=== PATIENT | male | born 1985 | race Caucasian/White ===

== ENCOUNTER 2022-01-19 00:13 | Day surgery (SDC) | payer OTHER, SELFPAY ==
[2022-01-11 15:39] VITALS: BMI 29.1
--- NOTE | 2022-01-11 15:47 | PC.NURSE ---
Report to the Outpatient Waiting Room, entrance under the green pavilion located off [facility], at time 0830 on date 01/19/22. OR Time: 1030. - You and your visitor will be asked a series of questions to screen for COVID 19 for your protection. - Only one visitor is allowed at this time. - The patient visitor is requested to leave or wait in car when not with patient. - A mask is required within the hospital. Patients may have clear liquids (water, carbonated beverages, clear teas, apple juice) until 3 hours prior to surgery with a maximum of 20 ounces. - No food from midnight until time of surgery Take the following medications with a SIP of water the morning of surgery: NONE Medications to discontinue per physician: PROBIOTIC Date to take last dose: 01/15/22 Please no make-up, nail urdu, hairspray, perfume, deodorant, or body powder the day of surgery. No jewelry (including any body piercings) or valuables the day of surgery, leave them at home. Please take a shower or bath the night before, or the morning of, surgery with an antibacterial soap. Wear comfortable, loose fitting clothing. - Jewelry must be removed prior to entering the operating room. Rings and piercings that are not removed may be cut off. - The hospital will not accept responsibility for valuables. - Please leave all valuables, including medications, at home the day of surgery. If you are going home after surgery, a licensed cart driver must drive you home. - NO public transportation without another adult. - We recommend that an adult stay with you for 24 hours following discharge. - We also recommend that you do not drive, make important decision, drink alcoholic beverages, or take any drugs that were not prescribed by your health care provider for at least 24 hours after your discharge time. Follow any additional instructions given to you from your surgeon. If you or anyone in your household have experienced Covid symptoms in the past week, please notify your surgeon or the nurse liaison at the phone number below for possible testing. Telephone instructions given to PT - ANUM ESTEVEZ and asked if any additional questions and then verbalized understanding. Patient advised to call surgeon office or pre surgery nurse liaison [phone] if any additional questions.
--- NOTE | 2022-01-18 13:33 | WPDANESEPPF ---
Anes - Initial Pre Proc Eval Procedure: Operation Date: 01/19/22 10:30 Proposed Procedures p Bilateral Vasectomy, Possible Scrotal Exploration - Fabrizio Zavala MD Date/Time: 01/18/22 13:33 Surgeon: Fabrizio Zavala MD Pre Op Diagnosis: desires sterilization Patient Data Age: 36 Gender: M Height: 1.83 m Weight: 97.52 kg Allergies Allergy/AdvReac Type Severity Reaction Status Date / Time No Known Allergies Allergy Verified 01/11/22 15:38 Home Medications Medication Instructions Recorded Confirmed Type Lactobacillus acidophilus and 1 cap PO DAILY 01/11/22 01/19/22 History rhamnosus 15 billion cell capsule (Probiotic) Patient hx anesthesia problems: none Family hx anesthesia problems: none Results Review: All pre-operative results and documents have been reviewed as part of the pre-operative evaluation. [facility] Social History Social History Smoking packs per day: 0.5 Smoking cigarettes per day: 10.0 Years smoked: 8 Smoking pack-years: 4.00 Smoking status: Former smoker Tobacco type: cigarettes Smoking end date: 06/20/07 Alcohol intake: current Drinks per week: 6 Substance use: never Substance use type: does not use Living arrangements: with family Spiritual care concerns: No Anes - Eval Final PreProcedure Day of Procedure 01/18/22 13:33 Patient weight: overweight Heart: regular rate and rhythm Lungs: clear to auscultation Airway: Mallampati scale class III Neurological: alert and oriented Last oral intake: >/= 8 hours ASA classification: II Emergent: no Anesthetic plan: proceed Anesthesia type and monitoring: general LMA and standard monitoring Results Review: All pre-operative results and documents have been reviewed as part of the pre-operative evaluation. Informed Consent: The patient's anesthetic plan and its attendant risks and benefits were discussed with the patient/family/POA. Questions were solicited and answers provided to the satisfaction of the patient/family/POA.
[2022-01-19] VITALS (8 sets, daily range): BP systolic 111–147; BP diastolic 64–92; PULSE 60–75; RESP 8–18; TEMP 36.1–36.6; O2SAT 99–100
--- NOTE | 2022-01-19 07:29 | WPDHPUPDATE1 ---
History and Physical Update Update Date/Time: 01/19/22 07:29 History and Physical has been reviewed, including an updated exam of the patient. There are NO changes in the patient's condition. Risks, benefits, and alternatives have been discussed and questions answered. Patient agrees to proceed with procedure. proceed with bilateral vasectomy, possible scrotal exploration
[2022-01-19] MEDS: LACTATED RINGERS 1,000 ML 30 ML IV CONT ×2 (08:18→10:50)
[2022-01-19] MEDS: ceFAZolin 2 GM/D5W 50 ML 2 GM/50 ML BAG IVPB (09:31)
[2022-01-19] MEDS: BACITRACIN OINTMENT 15 GM TUBE 1 APPLIC TOPICAL (09:40)
--- NOTE | 2022-01-19 10:54 | W.PM.PROC2 ---
Procedure Note - Detailed Date of Procedure 01/19/22 Pre-op Diagnosis desires sterilization Post-op Diagnosis Same (Atretic left vas , left hydrocele) Procedure Performed Right vasectomy, left scrotal exploration with left hydrocelectomy and orchiopexy Surgeon Fabrizio Zavala MD Anesthesia General Findings No vas found on left hemiscrotum with poorly developed epididymis, left hydrocele Description of Procedure Patient is taken to the operative suite correctly identified. Once anesthesia was obtained was placed in supine position prepped and draped usual sterile fashion. The right vas was easily palpated. Through a midline incision it was isolated with a segment excised. The ends were fulgurated ligated and buried. The left vas again is not palpable. He has a thick cord. At this point we made a small left hemiscrotal incision carried down to the tunical layers. Testicles brought on the operative field. He does have a hydrocele. The hydrocele sac was opened and the excess tissue was excised. Again he has a slight lipoma of the cord. The epididymis appears poorly developed with the body and tail not present in his normal anatomic location. We opened up the cord structures but were unable to visualize any significant vas structure at this time. At this point the procedure was terminated. An orchiopexy was performed with 3-0 Ethibond securing the testicle at 3 points. Quarter-inch Darya drain was then placed through a separate incision. [place] was secured with 3-0 chromic. [place] was closed using 3-0 chromic in a running fashion. Skin was closed using 3-0 chromic. Skin was anesthetized with 1% lidocaine. He was taken recovery stable condition. He will follow-up in a couple of weeks. Instructed to remove the Darya drain in 1-2 days if there is minimal drainage. We will see what his post procedure semen analysis looks like. Estimated Blood Loss 5 Drains Yes Packing No Pathology Yes Complications No immediate complications Condition Stable Disposition PACU
[2022-01-19] MEDS: fentaNYL CITRATE INJ (*CRX) 100 MCG/2 ML VIAL 25 MCG IV PUSH ×2 (11:20→11:30)
[2022-01-19] MEDS: oxyCODONE HCL (*CRX) 5 MG TAB IR PO (12:02)
== END 2022-01-19 12:35 | disposition home or self-care (01) ==
PROVIDERS: Visit Provider Urology
PROC: (CPT 55250; principal; 2022-01-19 09:30)
DX: Z30.2 Encounter for sterilization (principal); D17.6 Benign lipomatous neoplasm of spermatic cord; Q55.3 Atresia of vas deferens; N43.3 Hydrocele, unspecified; Z87.891 Personal history of nicotine dependence
CPT/HCPCS: 54640; 55250; 55500; 88300; 88302; A9270; J0690; J1100; J2250; J2405; J2704; J3010; J7120

== ENCOUNTER 2023-06-16 08:32 | Emergency (ER) | payer OTHER, SELFPAY ==
--- NOTE | ~2023-06-16 | XR_ITS ---
EXAMINATION: XR finger 2nd RT min 2V DATE: 06/16/2023 09:01 INDICATION: Right hand second digit injury. TECHNIQUE: 3 views of right hand second digit were obtained. COMPARISON: None. FINDINGS: Bone alignment is normal. There is a stellate fracture of tuft of second distal phalanx in near-anatomic alignment. Joint spaces are normal. IMPRESSION: 1. Stellate fracture of tuft of second distal phalanx. Reviewed, dictated and finalized at location A. ERY MANAGER
[2023-06-16 08:37] VITALS: BP 169/104; PULSE 96; RESP 16; TEMP 36.9; O2SAT 100
[2023-06-16 09:35] VITALS: BP 156/96; PULSE 81; RESP 15; TEMP 36.6; O2SAT 99
--- NOTE | 2023-06-16 09:38 | ED.UPPEXIN ---
HPI - Extremity Injury (Upper) General Chief Complaint: Extremity Injury, Upper Stated Complaint: finger laceration Time Seen by Provider: 06/16/23 09:37 Source: patient Mode of arrival: ambulatory Limitations: no limitations History of Present Illness HPI narrative: This is a 38-year-old male that presents to the emergency department for right 2nd finger injury sustained just prior to arrival. Reports he smashed it on a cinder block. Reports bleeding and pain to the area. He is not up-to-date on his tetanus vaccination. Denies decreased range of motion or numbness. Related Data Home Medications Medication Instructions Recorded Confirmed Lactobacillus acidophilus and 1 cap PO DAILY 01/11/22 01/19/22 rhamnosus 15 billion cell capsule (Probiotic) Allergies Allergy/AdvReac Type Severity Reaction Status Date / Time No Known Allergies Allergy Verified 01/11/22 15:38 Review of Systems Review of Systems: CONSTITUTIONAL: Denies fever SKIN: Reports laceration MUSCULOSKELETAL: Reports joint pain, and myalgia. NEUROLOGIC: Denies numbness All systems reviewed & are unremarkable except as noted in HPI and below PMFSH Past Medical History Medical History (Updated 06/16/23 @ 10:42 by Nika Mcduffie PA-C) No active medical problems Social History Social History Smoking packs per day: 0.5 Smoking cigarettes per day: 10.0 Years smoked: 8 Smoking pack-years: 4.00 Smoking status: Former smoker Tobacco type: cigarettes Smoking end date: 06/20/07 Alcohol intake: current Drinks per week: 6 Substance use: never Substance use type: does not use Living arrangements: with family Spiritual care concerns: No Exam Narrative: GENERAL: Well-appearing, well-nourished, and in no acute distress. HEAD: Normocephalic, atraumatic. EYES: EOMI. EXTREMITIES: Normal range of motion. Right second finger palmar aspect with 2cm linear laceration into subcutaneous tissue. Normal radial pulse. Normal sensation SKIN: Warm, dry, no rash. NEURO: No focal deficits. Alert and oriented x3. PSYCH: Normal mood and affect Course Course Emergency Course: Patient updated on his workup, laceration repaired, educated on further wound care Vital Signs Vital signs: Vital Signs Temperature 98.4 F 06/16/23 08:37 Pulse Rate 96 06/16/23 08:37 Respiratory Rate 16 06/16/23 08:37 Blood Pressure 169/104 H 12/28/23 08:37 Pulse Oximetry 100 06/16/23 08:37 Oxygen Delivery Room Air 06/16/23 08:37 Temperature 97.8 F 06/16/23 09:35 Pulse Rate 82 06/16/23 09:49 Respiratory Rate 15 06/16/23 09:49 Blood Pressure 131/99 H 06/16/23 09:49 Pulse Oximetry 100 06/16/23 09:49 Oxygen Delivery Room Air 06/16/23 09:35 Procedures Laceration Laceration 1: Date: 06/16/23 Time: 10:44 Site: hand Side (If applicable): right Size (cm): 2 Description: linear Depth: simple, single layer Local Anesthetic: lidocaine 1% Amount of anesthesia used (mL): 4 Pre-repair: wound explored and irrigated extensively ====== Skin Level ====== Skin layer closed with: nylon Size (cm): 4-0 Number of sutures: 4 Technique: simple, interrupted ====== Subcutaneous Layer ====== ====== Muscle Layer ====== ====== Tendon Layer ====== Orthopedic Splinting/Casting Injury #1: Splinting/Casting Date: 06/16/23 Splinting/Casting Time: 10:44 Side: right Upper Extremity Injury Location: finger Upper Extremity Immobilizer: finger (other) Splint: prefabricated Pre-Formed: metal foam finger splint Pre-Procedure Neuro Vascular Exam: normal Post-Procedure Neuro Vascular Exam: normal MDM - Extremity Injury (Upper) MDM Narrative Medical decision making narrative: Patient presents to the emergency department after a crush injury to the right 2nd
[2023-06-16 09:49] VITALS: BP 131/99; PULSE 82; RESP 15; O2SAT 100
[2023-06-16] MEDS: ceFAZolin SODIUM 1 GM VIAL IM (09:50)
[2023-06-16] MEDS: WATER, STERILE FOR INJECTION 10 ML VIAL XX (09:51)
[2023-06-16] MEDS: TETANUS,DIPHTHERIA,AC PERTUSSIS ADULT (0.5 ML) BOOSTRIX IM (09:51)
== END 2023-06-16 10:57 | disposition home or self-care (01) ==
PROVIDERS: Emergency Provider Physician Assistant
DX: S62.630B Displaced fracture of distal phalanx of right index finger, initial encounter for open fracture (principal); Z23 Encounter for immunization; Z87.891 Personal history of nicotine dependence; W23.0XXA Caught, crushed, jammed, or pinched between moving objects, initial encounter
CPT/HCPCS: 12001; 29130; 73140; 90471; 90715; 96372; 99284; J0690

== ENCOUNTER 2023-07-13 13:30 | Outpatient (CLI) | payer OTHER, SELFPAY ==
--- NOTE | ~2023-07-13 | XR_ITS ---
EXAMINATION: XR finger 2nd RT min 2V DATE: 07/13/2023 13:54 INDICATION: Fracture of unspecified phalanx of right hand second digit. TECHNIQUE: 3 views of right hand second digit were obtained. COMPARISON: Right hand second digit radiographs 06/16/2023 FINDINGS: There is a nondisplaced stellate fracture of tuft of second distal phalanx. No visible call us. Joint spaces are normal. IMPRESSION: 1. Nondisplaced stellate fracture of tuft of second distal phalanx. Reviewed, dictated and finalized at location E. US MANAGER
== END 2023-07-13 13:31 | disposition home or self-care (01) ==
LOC: ANHIMG 13:36
PROVIDERS: PCP Family Medicine Sports Medicine; Visit Provider Physician Assistant Surgical
DX: S62.660D Nondisplaced fracture of distal phalanx of right index finger, subsequent encounter for fracture with routine healing (principal); X58.XXXD Exposure to other specified factors, subsequent encounter
CPT/HCPCS: 73140